=== PATIENT | male | born 1965 | race Caucasian/White ===

== ENCOUNTER 2022-06-11 19:05 | Emergency (ER) | payer BC, SELFPAY ==
[2022-06-11 19:08] VITALS: BP 118/78; PULSE 110; RESP 18; TEMP 36.7; O2SAT 98; BMI 27.7
--- NOTE | 2022-06-11 20:27 | ED_ITS ---
HPI - General Adult General Chief complaint: Fever Stated complaint: Difficulty swallowing, fever Time Seen by Provider: 06/11/22 19:17 Source: patient Limitations: no limitations History of Present Illness HPI narrative: [age] year male coming in today complaining of a sore throat that started yesterday. Got worse today. He has a hard time swallowing but is capable of doing that. He has been drinking lots of water all day but has been eating very much. He states that he had a fever of 100.0 today. He is not coughing. He denies headache, blurry vision or changes in his hearing. He denies chest pain or shortness of breath. He denies body aches or joint aches. He states that he had tonsillitis in April of this year. Related Data Previous Rx's Medication Instructions Recorded nirmatrelvir 300 mg (150 mg See Rx Instructions PO .COMPLEX 06/11/22 x2)-ritonavir 100 mg tablet,dose #30 ea pack(EUA) (Paxlovid) Allergies Allergy/AdvReac Type Severity Reaction Status Date / Time Sulfa (Sulfonamide Allergy Verified 06/11/22 19:10 Antibiotics) Review of Systems Status of ROS: Reports: 10 or more systems reviewed and unremarkable except as noted in History and below [facility] Social History Smoking Status: Never smoker Do you use any of these nicotine containing products: E-Cigarettes Second hand tobacco smoke exposure: No How often do you have a drink containing alcohol: never How often do you have six or more drinks on one occasion: Never AUDIT-C Alcohol total score: 0 Non-prescribed substance use: denies use service: No Exam Narrative: Exam Narrative: Well-nourished well-developed patient in no acute distress. Alert and oriented. Answers questions appropriately. Mood and affect are appropriate. Thoughts are goal oriented and rational. No tangential or magical thinking noted. Patient speaks in full sentences without needing to catch their breath. Speech is not slurred or pressure. Voice sounds normal. HEENT: Normocephalic atraumatic. Pupils are equally round reactive to light. Extraocular muscles are intact. Conjunctivae are moist without any icterus noted. Moist mucous membranes. Posterior pharynx shows erythema. There is no exudate present. The tonsils are not significantly swollen. The soft palate is not protruding forward. I do not see any evidence of a abscess formation. Neck is soft without any lymphadenopathy or thyromegaly. No masses are appreciated. Cardiovascular: Heart is regular rate and rhythm S1 and S2 are present without any murmurs. Lungs: Clear to auscultation bilaterally no wheezes rhonchi or rales are appreciated. Patient takes deep breaths without any discomfort. Abdomen: Soft and nontender nondistended with normal bowel sounds. Skin: Well perfused without any obvious rashes. Const: Vital Signs, click to edit/add: Vital Signs - 24 hr 06/11/22 19:08 Temperature 98.1 F Pulse Rate [Right Pulse Oximeter] 110 H Respiratory Rate 18 Blood Pressure [Ri ght Upper Arm] 118/78 Pulse Oximetry 98 Oxygen Delivery Me thod Room Air Course Course Hospital Course: Strep, influenza and COVID - patient is COVID positive. Vital Signs Vital signs: Initial Vital Signs Temperature 98.1 F 06/11/22 19:08 Temperature Source Temporal Artery Scan 06/11/22 19:08 Pulse Rate 110 H 06/11/22 19:08 Respiratory Rate 18 06/11/22 19:08 Blood Pressure 118/78 06/11/22 19:08 Blood Pressure Mean 91 06/11/22 19:08 Blood Pressure Position Sitting 06/11/22 19:08 Pulse Oximetry 98 06/11/22 19:08 Oxygen Delivery Method 06/11/22 19:08 Vital Signs Temperature 98.1 F 06/11/22 19:08 Pulse Rate 110 H 06/11/22 19:08 Respiratory Rate 18 06/11/22 19:08 Blood Pressure 118/78 06/11/22 19:08 Pulse Oximetry 98 06/11/22 19:08 Oxygen Delivery Method 06/11/22 19:08 Temperature 98.1 F 06/11/22 19:08 Pulse Rate 110 H 06/11/22 19:08 Respiratory Rate 18 06/11/22 19:08 Blood Pressure 118/78 06/11/22 19:08 Pulse Oximetry 98 06/11/22 19:08 Oxygen Delivery Method 06/11/22 19:08 Medical Decision Making MDM Narrative Medical decision making narrative: 56-year-old male with a sore throat and COVID-19. We discussed Paxlovid use and patient wishes to have that, so we did go ahead and prescribe that to him. He takes no other medications. He is vaccinated. We discussed that risk may outweigh the benefit at this time however patient states that he would like to try. His creatinine is 1.0. Lab Data Lab results reviewed: Yes I reviewed the patient's lab results Labs: Lab Results 06/11/22 06/11/22 Range/Units 19:32 19:32 SARS-CoV-2 (PCR) POSITIVE SARS-CoV-2 A (Negative) Influenza Type A (PCR) Negative PCR FLU A (Negative) Influenza Type B (PCR) Negative PCR FLU B (Negative) Group A Strep DNA Not Detected (No Detected) Point of care creatinine 1.0 Discharge Plan Discharge Clinical Impression: COVID-19, Acute sore throat Patient Disposition: Home, Self-Care Condition: Stable Additional Instructions: Take Paxlovid as prescribed. Okay to use ibuprofen as needed for discomfort. Return to the ER if symptoms are getting worse instead of better. Quarantine yourself for 10 days starting on the 1st day that your symptoms began. If you are completely asymptomatic before 10 days is up then quarantine yourself for 5 days and use a tight fitting N95 mask when out in public until day 10. Prescriptions: New Paxlovid (EUA) 300 mg (150 mg x 2)-100 mg tablets,dose pack See Rx Instructions .ROUTE .COMPLEX Qty: 30 0RF Rx Instructions: take TWO 150 mg tablets of nirmatrelvir with ONE 100 mg tablet of ritonavir twice daily for 5 days Stand Alone Forms: [facility] Info Instructions
[2022-06-11 20:46] LABS: PCR FLU A Negative PCR FLU A (Negative); PCR FLU B Negative PCR FLU B (Negative)
[2022-06-11 21:29] VITALS: BP 118/78; BP 125/78; PULSE 110; PULSE 78; RESP 18; TEMP 36.7; O2SAT 98
[2022-06-11 21:32] VITALS: BP 118/78; PULSE 91; RESP 18; TEMP 36.7
[2022-06-11 23:16] LABS: SARS PCR* POSITIVE SARS-CoV-2 (Negative)
[2022-06-11 23:18] LABS: Strep A DNA Probe* NOT DETECTED (No Detected)
== END 2022-06-11 21:33 | disposition home or self-care (01) ==
LOC: ED 20:42
PROVIDERS: Emergency Provider Family Medicine
DX: U07.1 COVID-19 (principal); J02.9 Acute pharyngitis, unspecified
CPT/HCPCS: 87631; 87651; 99283

== ENCOUNTER 2023-09-28 14:24 | Emergency (ER) | payer BC, SELFPAY ==
[2023-09-28] VITALS (53 sets, daily range): BP systolic 114–150; BP diastolic 77–99; PULSE 62–82; RESP 16–18; TEMP 36.2; O2SAT 67–100; BMI 28.2
--- NOTE | 2023-09-28 14:45 | CRLHL7_ITS ---
For Patients: As a result of the Century Cures Act, medical imaging exams and procedure reports are released immediately into your electronic medical record. You may view this report before your referring provider. If you have questions, please contact your health care provider. INDICATION: Stroke. COMPARISON: None. TECHNIQUE: CT of the head without IV contrast. Coronal and sagittal reconstructions. FINDINGS: There is a small subtle focus of low attenuation in the left hendricks radiata which is age indeterminate (series 2 image 38 and series 6 image 44). A developing lacunar infarct cannot be excluded. No loss of robertson-white differentiation. No intracranial hemorrhage or abnormal extra-axial fluid collections. No mass effect or midline shift. Normal caliber ventricular system. Orbits and extraocular muscles are symmetric. Polyps or mucous retention cysts in the left maxillary sinus. The remainder of the paranasal sinuses and mastoid air cells are clear. No acute fracture identified. Soft tissues are unremarkable. IMPRESSION: 1. Small age indeterminate focus of low attenuation in the left hendricks radiata. This could be further evaluated with MRI if clinically indicated. 2. No other acute intracranial findings. 3. Findings discussed with Nida Amaya at 3:29 p.m. on 09/28/2023. Please note that all CT scans at this facility use dose modulation, iterative reconstruction, and/or weight-based dosing when appropriate to reduce radiation dose to as low as reasonably achievable. Dictated by Pratibha Chow MD @ 09/28/2023 3:31:19 PM (Electronically Signed)
[2023-09-28 14:56] LABS: Basophils Absolute Auto 0.03 K/uL (0.00-0.30); Basophils Percent Auto 0.4 % (0.0-3.0); Eosinophils Absolute Auto 0.16 K/uL (0.00-0.50); Eosinophils Percent Auto 2.2 % (0.0-7.0); Hematocrit 43.2 % (37.0-53.0); Hemoglobin* 14.8 gm/dL (13.5-17.5); Immature Granulocytes Abs Auto 0.03 K/uL (0.00-0.30); Immature Granulocytes Pct Auto 0.4 %; Lymphocytes Absolute Auto 2.54 K/uL (0.90-2.90); Lymphocytes Percent Auto 35.4 % (20-44); Mean Corpuscular HGB Conc 34 gm/dL (32-36); Mean Corpuscular Hemoglobin 31 pg (26-34); Mean Corpuscular Volume 91 fL (80-100); Monocytes Percent Auto 8.9 % (0.0-11.0); Neutrophils Absolute Auto 3.77 K/uL (1.7-7.0); Neutrophils Percent Auto 52.7 % (42.0-72.0); Platelet Count* 191 K/uL (140-440); RDW Coefficient of Variation % 12.2 % (11.5-15.5); Red Blood Count 4.75 m/uL (4.30-5.90); White Blood Count* 7.17 K/uL (4.50-11.00)
--- NOTE | 2023-09-28 14:58 | ED.NEUROSD ---
HPI - Neuro Symptoms/Deficit General Date Seen: 09/28/23 <Calin Dobbins DO - Last Filed: 09/28/23 16:21> Chief Complaint: Extremity Pain/Injury, Upper <Calin Campos [place], DO - Last Filed: 09/28/23 16:21> Stated Complaint: Left arm isnt working well <Calin Dobbins DO - Last Filed: 09/28/23 16:21> Time Seen by Provider: 09/28/23 14:38 <Calin Dobbins DO - Last Filed: 09/28/23 16:21> Source: patient <Calin Dobbins DO - Last Filed: 09/28/23 16:21> Mode of arrival: ambulatory <Calin Dobbins DO - Last Filed: 09/28/23 16:21> Limitations: no limitations <Calin Dobbins DO - Last Filed: 09/28/23 16:21> History of Present Illness HPI Narrative: Patient is a 57-year-old male with no pertinent medical problems presenting to the emergency department for left arm numbness and weakness. He states that roughly 13:45 he went to go close some blinds when he notices left arm was numb and he was unable to use his left hand. He says it felt as if it was not there states the numbness has improved but he still feels like he does not have full control of his left hand. He has never had symptoms like this before. No history of TIA. He has no other medical issues and is not currently on any antibiotics. Denies numbness or weakness anywhere else at this time. Denies vision changes, hearing issues. Denies chest pain, shortness of breath, abdominal pain, lightheadedness, dizziness. <Calin Dobbins - Last Filed: 09/28/23 16:21> Related Data Home Medications: Home Medications Medication Instructions Recorded Confirmed No Known Home Medications 09/28/23 09/28/23 <Calin Dobbins DO - Last Filed: 09/28/23 16:21> Allergies/Adverse Reactions: Allergies Allergy/AdvReac Type Severity Reaction Status Date / Time Sulfa (Sulfonamide Allergy Verified 06/11/22 19:10 Antibiotics) <Calin Dobbins DO - Last Filed: 09/28/23 16:21> Review of Systems Status of ROS: Reports: 10 or more systems reviewed and unremarkable except as noted in History and below <Calin Dobbins DO - Last Filed: 09/28/23 16:21> [facility] Social History: Social History Smoking Status: Never smoker Do you use any of these nicotine containing products: E-Cigarettes Second hand tobacco smoke exposure: No How often do you have a drink containing alcohol: never How often do you have six or more drinks on one occasion: Never AUDIT-C Alcohol total score: 0 Non-prescribed substance use: denies use service: No <Calin Dobbins DO - Last Filed: 09/28/23 16:21> Exam Narrative: Exam Narrative: Const: Well-nourished, Well-developed, in mild distress Eyes: PERRL, no conjunctival injection, and symmetrical lids HENT: Atraumatic external nose and ears. Moist mucous membranes. Neck: Symmetric, trachea midline, No thyromegaly. CVS: RRR, No murmurs or gallops. Peripheral pulses 2+ and equal in all extremities RESP: Unlabored respiratory effort. Clear to auscultation bilaterally. GI: Nontender/Nondistended, No rebound or guarding. MSK:Extremities w/o deformity, Normal Active ROM Skin: Warm, Dry. No rashes or lesions. Neuro: Normal Muscle tone, Cranial nerves 2-12 grossly intact, normal [id number], abnormal [id number] on the arm, normal gait, normal strength 5/5 upper lower extremities bilaterally, normal sensation upper and lower extremities bilaterally, normal rapid alternating movements. NIH stroke scale of 1 Psych: Awake, Alert, & Oriented x3. Appropriate mood and affect. <Calin Dobbins DO - Last Filed: 09/28/23 16:21> Const: Vital Signs, click to edit/add: Vital Signs - 24 hr 09/28/23 14:33 09/28/23 15:00 09/28/23 15:13 Temperature 97.2 F L Pulse Rate Pulse Rate [Pulse Oximeter] 68 70 69 Respiratory Rate 18 16 18 Blood Pressure Blood Pressure [Ri ght Upper Arm] 131/81 127/77 133/82 Pulse Oximetry 100 99 99 Oxygen Delivery Me thod Room Air Room Air 09/28/23 15:15 09/28/23 15:35 09/28/23 15:38 Temperature Pulse Rate Pulse Rate [Pulse Oximeter] 67 Respiratory Rate 18 Blood Pressure Blood Pressure [Ri ght Upper Arm] 150/99 H Pulse Oximetry 67 L 96 96 Oxygen Delivery Me thod Room Air 09/28/23 15:45 09/28/23 15:49 09/28/23 15:50 Temperature Pulse Rate 71 70 69 Pulse Rate [Pulse Oximeter] Respiratory Rate Blood Pressure Blood Pressure [Ri ght Upper Arm] Pulse Oximetry 99 98 98 Oxygen Delivery Me thod 09/28/23 15:54 09/28/23 15:56 09/28/23 16:01 Temperature Pulse Rate 65 62 70 Pulse Rate [Pulse Oximeter] Respiratory Rate Blood Pressure Blood Pressure [Ri ght Upper Arm] Pulse Oximetry 97 98 99 Oxygen Delivery Me thod 09/28/23 16:04 09/28/23 16:16 09/28/23 16:36 Temperature Pulse Rate 68 74 71 Pulse Rate [Pulse Oximeter] Respiratory Rate Blood Pressure Blood Pressure [Ri ght Upper Arm] Pulse Oximetry 99 99 96 Oxygen Delivery Me thod 09/28/23 16:45 09/28/23 16:50 09/28/23 16:52 Temperature Pulse Rate 73 72 79 Pulse Rate [Pulse Oximeter] Respiratory Rate Blood Pressure 128/88 135/82 Blood Pressure [Ri ght Upper Arm] Pulse Oximetry 97 97 98 Oxygen Delivery Me thod 09/28/23 17:01 09/28/23 17:02 09/28/23 17:12 Temperature Pulse Rate 79 71 72 Pulse Rate [Pulse Oximeter] Respiratory Rate Blood Pressure 129/89 133/85 Blood Pressure [Ri ght Upper Arm] Pulse Oximetry 98 97 96 Oxygen Delivery Me thod 09/28/23 17:13 09/28/23 17:15 09/28/23 17:22 Temperature Pulse Rate 73 75 71 Pulse Rate [Pulse Oximeter] Respiratory Rate Blood Pressure 130/81 Blood Pressure [Ri ght Upper Arm] Pulse Oximetry 98 96 97 Oxygen Delivery Me thod 09/28/23 17:30 09/28/23 17:32 09/28/23 17:42 Temperature Pulse Rate 77 75 78 Pulse Rate [Pulse Oximeter] Respiratory Rate Blood Pressure 122/87 128/87 Blood Pressure [Ri ght Upper Arm] Pulse Oximetry 98 97 96 Oxygen Delivery Me thod 09/28/23 17:45 09/28/23 17:52 09/28/23 18:00 Temperature Pulse Rate 75 69 73 Pulse Rate [Pulse Oximeter] Respiratory Rate Blood Pressure 130/85 Blood Pressure [Ri ght Upper Arm] Pulse Oximetry 98 97 97 Oxygen Delivery Me thod 09/28/23 18:02 09/28/23 18:12 09/28/23 18:13 Temperature Pulse Rate 74 73 72 Pulse Rate [Pulse Oximeter] Respiratory Rate Blood Pressure 139/82 136/84 Blood Pressure [Ri ght Upper Arm] Pulse Oximetry 96 99 98 Oxygen Delivery Me thod 09/28/23 18:15 09/28/23 18:25 09/28/23 18:26 Temperature Pulse Rate 74 75 70 Pulse Rate [Pulse Oximeter] Respiratory Rate Blood Pressure 127/84 Blood Pressure [Ri ght Upper Arm] Pulse Oximetry 96 97 98 Oxygen Delivery Me thod 09/28/23 18:30 09/28/23 18:32 09/28/23 18:33 Temperature Pulse Rate 71 68 69 Pulse Rate [Pulse Oximeter] Respiratory Rate Blood Pressure 123/82 Blood Pressure [Ri ght Upper Arm] Pulse Oximetry 97 98 98 Oxygen Delivery Me thod 09/28/23 18:42 09/28/23 18:45 09/28/23 18:53 Temperature Pulse Rate 69 70 69 Pulse Rate [Pulse Oximeter] Respiratory Rate Blood Pressure 129/78 135/82 Blood Pressure [Ri ght Upper Arm] Pulse Oximetry 97 97 97 Oxygen Delivery Me thod 09/28/23 18:54 09/28/23 19:00 09/28/23 19:03 Temperature Pulse Rate 70 68 68 Pulse Rate [Pulse Oximeter] Respiratory Rate Blood Pressure 125/84 Blood Pressure [Ri ght Upper Arm] Pulse Oximetry 97 97 97 Oxygen Delivery Me thod 09/28/23 19:12 09/28/23 19:15 09/28/23 19:22 Temperature Pulse Rate 65 65 65 Pulse Rate [Pulse Oximeter] Respiratory Rate Blood Pressure 114/78 123/78 Blood Pressure [Ri ght Upper Arm] Pulse Oximetry 97 96 94 Oxygen Delivery Me thod 09/28/23 19:30 09/28/23 19:32 09/28/23 19:33 Temperature Pulse Rate 80 78 76 Pulse Rate [Pulse Oximeter] Respiratory Rate Blood Pressure 126/83 Blood Pressure [Ri ght Upper Arm] Pulse Oximetry 98 95 97 Oxygen Delivery Me thod 09/28/23 19:42 09/28/23 19:43 Temperature Pulse Rate 77 82 Pulse Rate [Pulse Oximeter] Respiratory Rate Blood Pressure 129/84 Blood Pressure [Ri ght Upper Arm] Pulse Oximetry 97 98 Oxygen Delivery Me thod <Calin Dobbins, DO - Last Filed: 09/28/23 16:21> Vital Signs, click to edit/add: Vital Signs - 24 hr 09/28/23 14:33 09/28/23 15:00 09/28/23 15:13 Temperature 97.2 F L Pulse Rate Pulse Rate [Pulse Oximeter] 68 70 69 Respiratory Rate 18 16 18 Blood Pressure Blood Pressure [Ri ght Upper Arm] 131/81 127/77 133/82 Pulse Oximetry 100 99 99 Oxygen Delivery Me thod Room Air Room Air 09/28/23 15:15 09/28/23 15:35 09/28/23 15:38 Temperature Pulse Rate Pulse Rate [Pulse Oximeter] 67 Respiratory Rate 18 Blood Pressure Blood Pressure [Ri ght Upper Arm] 150/99 H Pulse Oximetry 67 L 96 96 Oxygen Delivery Me thod Room Air 09/28/23 15:45 09/28/23 15:49 09/28/23 15:50 Temperature Pulse Rate 71 70 69 Pulse Rate [Pulse Oximeter] Respiratory Rate Blood Pressure Blood Pressure [Ri ght Upper Arm] Pulse Oximetry 99 98 98 Oxygen Delivery Me thod 09/28/23 15:54 09/28/23 15:56 09/28/23 16:01 Temperature Pulse Rate 65 62 70 Pulse Rate [Pulse Oximeter] Respiratory Rate Blood Pressure Blood Pressure [Ri ght Upper Arm] Pulse Oximetry 97 98 99 Oxygen Delivery Me thod 09/28/23 16:04 09/28/23 16:16 09/28/23 16:36 Temperature Pulse Rate 68 74 71 Pulse Rate [Pulse Oximeter] Respiratory Rate Blood Pressure Blood Pressure [Ri ght Upper Arm] Pulse Oximetry 99 99 96 Oxygen Delivery Me thod 09/28/23 16:45 09/28/23 16:50 09/28/23 16:52 Temperature Pulse Rate 73 72 79 Pulse Rate [Pulse Oximeter] Respiratory Rate Blood Pressure 128/88 135/82 Blood Pressure [Ri ght Upper Arm] Pulse Oximetry 97 97 98 Oxygen Delivery Me thod 09/28/23 17:01 09/28/23 17:02 09/28/23 17:12 Temperature Pulse Rate 79 71 72 Pulse Rate [Pulse Oximeter] Respiratory Rate Blood Pressure 129/89 133/85 Blood Pressure [Ri ght Upper Arm] Pulse Oximetry 98 97 96 Oxygen Delivery Me thod 09/28/23 17:13 09/28/23 17:15 09/28/23 17:22 Temperature Pulse Rate 73 75 71 Pulse Rate [Pulse Oximeter] Respiratory Rate Blood Pressure 130/81 Blood Pressure [Ri ght Upper Arm] Pulse Oximetry 98 96 97 Oxygen Delivery Me thod 09/28/23 17:30 09/28/23 17:32 09/28/23 17:42 Temperature Pulse Rate 77 75 78 Pulse Rate [Pulse Oximeter] Respiratory Rate Blood Pressure 122/87 128/87 Blood Pressure [Ri ght Upper Arm] Pulse Oximetry 98 97 96 Oxygen Delivery Me thod 09/28/23 17:45 09/28/23 17:52 09/28/23 18:00 Temperature Pulse Rate 75 69 73 Pulse Rate [Pulse Oximeter] Respiratory Rate Blood Pressure 130/85 Blood Pressure [Ri ght Upper Arm] Pulse Oximetry 98 97 97 Oxygen Delivery Me thod 09/28/23 18:02 09/28/23 18:12 09/28/23 18:13 Temperature Pulse Rate 74 73 72 Pulse Rate [Pulse Oximeter] Respiratory Rate Blood Pressure 139/82 136/84 Blood Pressure [Ri ght Upper Arm] Pulse Oximetry 96 99 98 Oxygen Delivery Me thod 09/28/23 18:15 09/28/23 18:25 09/28/23 18:26 Temperature Pulse Rate 74 75 70 Pulse Rate [Pulse Oximeter] Respiratory Rate Blood Pressure 127/84 Blood Pressure [Ri ght Upper Arm] Pulse Oximetry 96 97 98 Oxygen Delivery Me thod 09/28/23 18:30 09/28/23 18:32 09/28/23 18:33 Temperature Pulse Rate 71 68 69 Pulse Rate [Pulse Oximeter] Respiratory Rate Blood Pressure 123/82 Blood Pressure [Ri ght Upper Arm] Pulse Oximetry 97 98 98 Oxygen Delivery Me thod 09/28/23 18:42 09/28/23 18:45 09/28/23 18:53 Temperature Pulse Rate 69 70 69 Pulse Rate [Pulse Oximeter] Respiratory Rate Blood Pressure 129/78 135/82 Blood Pressure [Ri ght Upper Arm] Pulse Oximetry 97 97 97 Oxygen Delivery Me thod 09/28/23 18:54 09/28/23 19:00 09/28/23 19:03 Temperature Pulse Rate 70 68 68 Pulse Rate [Pulse Oximeter] Respiratory Rate Blood Pressure 125/84 Blood Pressure [Ri ght Upper Arm] Pulse Oximetry 97 97 97 Oxygen Delivery Me thod 09/28/23 19:12 09/28/23 19:15 09/28/23 19:22 Temperature Pulse Rate 65 65 65 Pulse Rate [Pulse Oximeter] Respiratory Rate Blood Pressure 114/78 123/78 Blood Pressure [Ri ght Upper Arm] Pulse Oximetry 97 96 94 Oxygen Delivery Me thod 09/28/23 19:30 09/28/23 19:32 09/28/23 19:33 Temperature Pulse Rate 80 78 76 Pulse Rate [Pulse Oximeter] Respiratory Rate Blood Pressure 126/83 Blood Pressure [Ri ght Upper Arm] Pulse Oximetry 98 95 97 Oxygen Delivery Me thod 09/28/23 19:42 09/28/23 19:43 Temperature Pulse Rate 77 82 Pulse Rate [Pulse Oximeter] Respiratory Rate Blood Pressure 129/84 Blood Pressure [Ri ght Upper Arm] Pulse Oximetry 97 98 Oxygen Delivery Me thod <Kathie Vera MD - Last Filed: 09/28/23 20:57> Course Vital Signs Vital signs: Initial Vital Signs Temperature 97.2 F L 09/28/23 14:33 Temperature Source Temporal Artery Scan 09/28/23 14:33 Pulse Rate 68 09/28/23 14:33 Pulse Rhythm Regular 09/28/23 14:33 Respiratory Rate 18 09/28/23 14:33 Blood Pressure 131/81 09/28/23 14:33 Blood Pressure Mean 97 09/28/23 14:33 Blood Pressure Position Sitting 09/28/23 14:33 Pulse Oximetry 100 09/28/23 14:33 Oxygen Delivery Method Room Air 09/28/23 14:33 Vital Signs Temperature 97.2 F L 09/28/23 14:33 Pulse Rate 68 09/28/23 14:33 Respiratory Rate 18 09/28/23 14:33 Blood Pressure 131/81 09/28/23 14:33 Pulse Oximetry 100 09/28/23 14:33 Oxygen Delivery Method Room Air 09/28/23 14:33 Temperature 97.2 F L 09/28/23 14:33 Pulse Rate 82 09/28/23 19:43 Respiratory Rate 18 09/28/23 15:15 Blood Pressure 129/84 09/28/23 19:42 Pulse Oximetry 98 09/28/23 19:43 Oxygen Delivery Method Room Air 09/28/23 15:15 <Calin Dobbins DO - Last Filed: 09/28/23 16:21> Initial Vital Signs Temperature 97.2 F L 09/28/23 14:33 Temperature Source Temporal Artery Scan 09/28/23 14:33 Pulse Rate 68 09/28/23 14:33 Pulse Rhythm Regular 09/28/23 14:33 Respiratory Rate 18 09/28/23 14:33 Blood Pressure 131/81 09/28/23 14:33 Blood Pressure Mean 97 09/28/23 14:33 Blood Pressure Position Sitting 09/28/23 14:33 Pulse Oximetry 100 09/28/23 14:33 Oxygen Delivery Method Room Air 09/28/23 14:33 Vital Signs Temperature 97.2 F L 09/28/23 14:33 Pulse Rate 68 09/28/23 14:33 Respiratory Rate 18 09/28/23 14:33 Blood Pressure 131/81 09/28/23 14:33 Pulse Oximetry 100 09/28/23 14:33 Oxygen Delivery Method Room Air 09/28/23 14:33 Temperature 97.2 F L 09/28/23 14:33 Pulse Rate 82 09/28/23 19:43 Respiratory Rate 18 09/28/23 15:15 Blood Pressure 129/84 09/28/23 19:42 Pulse Oximetry 98 09/28/23 19:43 Oxygen Delivery Method Room Air 09/28/23 15:15 <Kathie Vera MD - Last Filed: 09/28/23 20:57> Medications Administered Medications: Discontinued Medications Generic Name Dose Route Start Last Admin Trade Name Freq PRN Reason Stop Dose Admin Sodium Chloride 1,000 mls @ 75 mls/hr 09/28/23 15:15 09/28/23 16:00 0.9 % Sodium Chloride 1000 Ml IV 75 mls/hr .[id number] YAMEL Administration Tenecteplase 25 mg 09/28/23 15:13 09/28/23 15:25 Tenecteplase 5 Mg/Ml Inj 0.25 mg/kg (25 mg) 09/28/23 15:14 25 mg IVP Administration ONCE ONE <Calin Dobbins DO - Last Filed: 09/28/23 16:21> Discontinued Medications Generic Name Dose Route Start Last Admin Trade Name Freddie PRN Reason Stop Dose Admin Sodium Chloride 1,000 mls @ 75 mls/hr 09/28/23 15:15 09/28/23 16:00 0.9 % Sodium Chloride 1000 Ml IV 75 mls/hr .[id number] YAMEL Administration Tenecteplase 25 mg 09/28/23 15:13 09/28/23 15:25 Tenecteplase 5 Mg/Ml Inj 0.25 mg/kg (25 mg) 09/28/23 15:14 25 mg IVP Administration ONCE ONE <Kathie Vera MD - Last Filed: 09/28/23 20:57> MDM - Neuro Symptoms/Deficit MDM Narrative Medical decision making narrative: Patient is a 57 year male presenting for emergency department for concern for stroke symptoms. I went to evaluate the patient and I had nursing staff call a code stroke. Is continued discoordination of his left arm. Stroke workup was ordered. I spoke to Dr. Amaya of [facility]. She is with the patient at this time. His NIH stroke scale was 1. Review of the CT head by myself shows no clear signs of hemorrhagic stroke. Dr. Amaya spoke with the patient and we are all in agreement to give tenecteplase at this time for appears to be an ischemic stroke. This will be given and the patient go for CTA. Patient's lab work returned showing no concerning abnormalities. EKG shows no concerning findings Patient's CTA is pending at this time and patient signed out to Dr. Vera as we wait to see which hospital he will be transferred to. <Calin Dobbins DO - Last Filed: 09/28/23 16:21> Patient is a 57 year male presenting for emergency department for concern for stroke symptoms. I went to evaluate the patient and I had nursing staff call a code stroke. Is continued discoordination of his left arm. Stroke workup was ordered. I spoke to Dr. Amaya of [facility]. She is with the patient at this time. His NIH stroke scale was 1. Review of the CT head by myself shows no clear signs of hemorrhagic stroke. Dr. Amaya spoke with the patient and we are all in agreement to give tenecteplase at this time for appears to be an ischemic stroke. This will be given and the patient go for CTA. Patient's lab work returned showing no concerning abnormalities. EKG shows no concerning findings Patient's CTA is pending at this time and patient signed out to Dr. Vera as we wait to see which hospital he will be transferred to. Jody [id number]: Received a phone call from Neurology. Dr. Amaya has read the CTA negative for any large clot requiring thrombectomy. Therefore the patient will go to [facility]. Contacting [facility] at this time for planned transfer. Dr. Gee, hospitalist at [facility] accepts patient. Delay in transfer due to in availability of EMS. Patient remained stable in the ED. <Kathie Vera MD - Last Filed: 09/28/23 20:57> Medical Records Attestation: I reviewed the patient's medical records. <Kathie Vera MD - Last Filed: 09/28/23 20:57> Lab Data Attestation: I reviewed the patient's lab results. <Kathie Vera MD - Last Filed: 09/28/23 20:57> Labs: Lab Results 09/28/23 09/28/23 Range/Units 14:50 15:18 WBC 7.17 (4.50-11.00) K/uL RBC 4.75 (4.30-5.90) m/uL Hgb 14.8 (13.5-17.5) gm/dL Hct 43.2 (37.0-53.0) % MCV 91 (80-100) fL MCH 31 (26-34) pg MCHC 34 (32-36) gm/dL RDW Coeff of Mirna 12.2 (11.5-15.5) % Plt Count 191 (140-440) K/uL Neut % (Auto) 52.7 (42.0-72.0) % Lymph % (Auto) 35.4 (20-44) % [place] % (Auto) 8.9 (0.0-11.0) % Eos % (Auto) 2.2 (0.0-7.0) % Baso % (Auto) 0.4 (0.0-3.0) % Neut # (Auto) 3.77 (1.7-7.0) K/uL Lymph # (Auto) 2.54 (0.90-2.90) K/uL [place] # (Auto) 0.60 (0.00-0.90) K/UL Eos # (Auto) 0.16 (0.00-0.50) K/uL Baso # (Auto) 0.03 (0.00-0.30) K/uL Abs Immat Gran (auto) 0.03 (0.00-0.30) K/uL Imm/Tot Granulo (auto) 0.4 % INR 0.95 (0.91-1.10) APTT 29 (23-33) Seconds Sodium 138 (135-149) mmol/L Potassium 4.1 (3.6-5.1) mmol/L Chloride 104 (96-114) mmol/L Carbon Dioxide 24 (20-32) mmol/L Anion Gap 10 (7-15) mEq/L BUN 16 (7-30) mg/dL Creatinine 0.8 (0.5-1.5) mg/dL Estimated Creat Clear 117.02 Estimated GFR 103 ml/min Glucose 110 (60-115) mg/dL Calcium 9.4 (8.4-10.6) mg/dL POC Troponin I 0.00 L (0.01-0.04) ng/ml <Calin Dobbins, DO - Last Filed: 09/28/23 16:21> Lab Results 09/28/23 09/28/23 Range/Units 14:50 15:18 WBC 7.17 (4.50-11.00) K/uL RBC 4.75 (4.30-5.90) m/uL Hgb 14.8 (13.5-17.5) gm/dL Hct 43.2 (37.0-53.0) % MCV 91 (80-100) fL MCH 31 (26-34) pg MCHC 34 (32-36) gm/dL RDW Coeff of Mirna 12.2 (11.5-15.5) % Plt Count 191 (140-440) K/uL Neut % (Auto) 52.7 (42.0-72.0) % Lymph % (Auto) 35.4 (20-44) % [place] % (Auto) 8.9 (0.0-11.0) % Eos % (Auto) 2.2 (0.0-7.0) % Baso % (Auto) 0.4 (0.0-3.0) % Neut # (Auto) 3.77 (1.7-7.0) K/uL Lymph # (Auto) 2.54 (0.90-2.90) K/uL [place] # (Auto) 0.60 (0.00-0.90) K/UL Eos # (Auto) 0.16 (0.00-0.50) K/uL Baso # (Auto) 0.03 (0.00-0.30) K/uL Abs Immat Gran (auto) 0.03 (0.00-0.30) K/uL Imm/Tot Granulo (auto) 0.4 % INR 0.95 (0.91-1.10) APTT 29 (23-33) Seconds Sodium 138 (135-149) mmol/L Potassium 4.1 (3.6-5.1) mmol/L Chloride 104 (96-114) mmol/L Carbon Dioxide 24 (20-32) mmol/L Anion Gap 10 (7-15) mEq/L BUN 16 (7-30) mg/dL Creatinine 0.8 (0.5-1.5) mg/dL Estimated Creat Clear 117.02 Estimated GFR 103 ml/min Glucose 110 (60-115) mg/dL Calcium 9.4 (8.4-10.6) mg/dL POC Troponin I 0.00 L (0.01-0.04) ng/ml <Kathie Vera MD - Last Filed: 09/28/23 20:57> Imaging Data CT head: Attestation: I have reviewed the pertinent imaging results. <Kathie Vera MD - Last Filed: 09/28/23 20:57> Radiologist's impression: 1. Small age indeterminate focus of low attenuation in the left hendricks radiata. This could be further evaluated with MRI if clinically indicated. 2. No other acute intracranial findings. 3. Findings discussed with Nida Amaya at 3:29 p.m. on 09/28/2023. Please note that all CT scans at this facility use dose modulation, iterative reconstruction, and/or weight-based dosing when appropriate to reduce radiation dose to as low as reasonably achievable. Dictated by Pratibha Chow MD @ 09/28/2023 3:31:19 PM <Calin Dobbins DO - Last Filed: 09/28/23 16:21> CTA head: Attestation: I have reviewed the pertinent imaging results. <Kathie Vera MD - Last Filed: 09/28/23 20:57> Radiologist's impression: CTA head: Unremarkable. No sign of occlusion or significant aneurysm. CTA neck: Unremarkable. No sign of dissection or significant stenosis. <Kathie Vera MD - Last Filed: 09/28/23 20:57> ECG Data Attestation: I personally reviewed and interpreted this ECG as follows: <Calin Dobbins DO - Last Filed: 09/28/23 16:21> Prior ECG tracings: not available for review <Calin Dobbins DO - Last Filed: 09/28/23 16:21> Interpretation: Normal sinus rhythm with a rate 71 beats per minute, normal intervals, normal axis, no ST or T-wave abnormalities. There does appear to be a nonspecific intraventricular block <Calin Dobbins DO - Last Filed: 09/28/23 16:21> Critical Care Time Critical Care Time Critical Care Time: Yes Attestation: The patient required my highest level preparedness to intervene emergently and I personally spent this critical care time directly and personally managing the patient. This critical care time included: Obtaining a history; Examining the patient; Pulse oximetry; Ordering and reviewing of studies; Arranging urgent treatment with development of a management plan; Evaluation of patients response to treatment; Frequent reassessment discussions with other providers. This critical care time was performed to assess and manage the high probability of imminent life-threatening deterioration that could result in multiorgan failure. It was exclusive of separate billable procedures and treating other patients and teaching time. <Calin Dobbins DO - Last Filed: 09/28/23 16:21> Total Critical Care Time in Minutes: 32 <Calin Dobbins DO - Last Filed: 12/19/23 16:21> Discharge Plan Discharge Clinical Impression: Stroke Qualifiers: CVA mechanism: unspecified Qualified Code(s): I63.9 - Cerebral infarction, unspecified <Calin Dobbins DO - Last Filed: 09/28/23 16:21> Patient Disposition: Xfer Other <Calin Dobbins DO - Last Filed: 09/28/23 16:21> Discharge Location: [facility] <Calin Dobbins DO - Last Filed: 09/28/23 16:21> Condition: Stable <Calin Dobbins DO - Last Filed: 09/28/23 16:21> Prescriptions: No Action No Known Home Medications <Calin Dobbins DO - Last Filed: 09/28/23 16:21> Stand Alone Forms: My[facility] Info Instructions <Calin Dobbins DO - Last Filed: 09/28/23 16:21>
--- NOTE | 2023-09-28 15:00 | CRLHL7_ITS ---
For Patients: As a result of the Century Cures Act, medical imaging exams and procedure reports are released immediately into your electronic medical record. You may view this report before your referring provider. If you have questions, please contact your health care provider. CLINICAL HISTORY: Acute neurological deficit. TECHNIQUE: CTA neck with contrast bolus tracking. 3D angiographic rendering using maximum intensity projection (MIP) and images permanently archived. COMPARISON: None available. FINDINGS: The great vessels are patent. The common carotid arteries are patent. The proximal ICAs are patent without signficant stenoses by NASCET criteria. The more distal cervical ICAs are patent. The origins of the vertebral arteries are patent. The cervical segments of the vertebral arteries are patent. IMPRESSION: Patent cervical arterial vasculature without hemodynamically significant luminal stenosis. Please note that all CT scans at this facility use dose modulation, iterative reconstruction, and/or weight-based dosing when appropriate to reduce radiation dose to as low as reasonably achievable. Dictated by Tito Wray MD @ 09/29/2023 10:08:00 AM (Electronically Signed)
--- NOTE | 2023-09-28 15:00 | CRLHL7_ITS ---
For Patients: As a result of the Century Cures Act, medical imaging exams and procedure reports are released immediately into your electronic medical record. You may view this report before your referring provider. If you have questions, please contact your health care provider. CLINICAL HISTORY: Acute neurological deficit. TECHNIQUE: CTA head with contrast bolus tracking. 3D angiographic rendering using maximum intensity projection (MIP) and images permanently archived. COMPARISON: None available. FINDINGS: The petrous, cavernous, and supraclinoid segments of the internal carotid arteries are patent. The anterior and middle cerebral arteries are patent. The anterior communicating artery is visualized and is within normal limits. The intracranial vertebral arteries, basilar trunk, and posterior cerebral arteries are patent. No intracranial proximal large vessel occlusion or flow-limiting luminal stenosis. No evidence of cerebral aneurysm. No findings to suggest an arterial-venous shunting lesion. The major dural venous sinuses and deep venous system are patent. IMPRESSION: No intracranial proximal large vessel occlusion, flow-limiting luminal stenosis, or cerebral aneurysm. Please note that all CT scans at this facility use dose modulation, iterative reconstruction, and/or weight-based dosing when appropriate to reduce radiation dose to as low as reasonably achievable. Dictated by Tito Wray MD @ 09/29/2023 10:09:53 AM (Electronically Signed)
[2023-09-28 15:16] LABS: Chloride* 104 mmol/L (96-114); Potassium* 4.1 mmol/L (3.6-5.1); Sodium* 138 mmol/L (135-149)
[2023-09-28 15:17] LABS: Slide Review Reflex No
[2023-09-28 15:18] LABS: Creatinine* 0.8 mg/dL (0.5-1.5); Est. Creatinine Clearance* 117.02; Estimated Glomerular Filt Rate 103 ml/min
[2023-09-28 15:19] LABS: Anion Gap 10 mEq/L (7-15); Blood Urea Nitrogen* 16 mg/dL (7-30); Calcium* 9.4 mg/dL (8.4-10.6); Carbon Dioxide* 24 mmol/L (20-32); Glucose* 110 mg/dL (60-115)
[2023-09-28 15:20] LABS: INR 0.95 (0.91-1.10); Prothrombin Time 13.2 Seconds
[2023-09-28 15:21] LABS: Partial Thromboplastin Time* 29 Seconds (23-33)
[2023-09-28] MEDS: TENECTEPLASE 5 MG/ML inj 25 MG IVP (15:25)
--- NOTE | 2023-09-28 15:53 | ED.NURSE ---
Tenectaplase administered 15:27. Last known well 13:45.
[2023-09-28] MEDS: 0.9 % SODIUM CHLORIDE 1000 ml 1,000 ML 75 ML IV (16:00)
--- NOTE | 2023-09-28 16:15 | ED.NURSE ---
Stroke protocol timeline: 14:30- Triage with nurse, roomed 14:40- MD assessment 14:45- Stroke Code Paged 14:48- Line/lab 14:50- To imaging, stroke neurology at [facility] consulted 14:55- Return to room, Assessment via telemedicine with stroke neurologist, EKG 15:27- Tenecteplase administration 15:28- To imaging for CTA 15:45- Return from imaging, waiting on transfer
--- NOTE | 2023-09-28 16:41 | ED.NURSE ---
Call placed to radiology about long wait for read on CTA, they will contact radiologist.
--- NOTE | 2023-09-28 17:14 | ED.NURSE ---
Accepting provider at [facility] is Dr. Mason.
--- NOTE | 2023-09-28 17:24 | ED.NURSE ---
Patient assigned to bed 4428 at [facility] (on unit 4400).
== END 2023-09-28 19:49 | disposition other institution (70) ==
PROVIDERS: Student in an Organized Health Care Education/Training Program; Emergency Provider Family Medicine
DX: I63.9 Cerebral infarction, unspecified (principal)
CPT/HCPCS: 36415; 70450; 70496; 70498; 80048; 82962; 84484; 85025; 85610; 85730; 94761; 95992; 96374; 99285; 99291; G0508; J3101; J7030; Q9967

== ENCOUNTER 2023-09-28 19:44 | Outpatient (CLI) | payer BC, SELFPAY | END 2023-09-28 19:45 | disposition home or self-care (01) | LOC: AMB 10-01 11:48 | PROVIDERS: Visit Provider Family Medicine | DX: I63.9 Cerebral infarction, unspecified (principal) | CPT/HCPCS: A0425; A0427 ==